=== PATIENT | male | born 1965 | race Caucasian/White ===

== ENCOUNTER 2022-12-03 11:17 | Emergency (ER) | payer BC ==
[2022-12-03 12:18] LABS: BASOPHILS ABSOLUTE AUTO 0.06 K/uL (0.00-0.10); BASOPHILS PERCENT AUTO 0.8 % (0.1-1.3); EOSINOPHILS ABSOLUTE AUTO 0.29 K/uL (0.00-0.40); EOSINOPHILS PERCENT AUTO 3.8 % (0.0-5.4); HEMATOCRIT 43.6 % (38.4-49.7); HEMOGLOBIN 14.8 g/dL (12.9-16.9); IMMATURE GRAN PERCENT AUTO 0.3 % (0.0-0.7); LYMPHOCYTES ABSOLUTE AUTO 2.54 K/uL (0.8-3.3); LYMPHOCYTES PERCENT AUTO 32.9 % (11.4-47.7); MEAN CORPUSCULAR HEMOGLOBIN 29.1 pg (31.6-35.5); MEAN CORPUSCULAR HGB CONC 33.9 g/dL (31.6-35.5); MEAN CORPUSCULAR VOLUME 85.8 fL (81.4-99.0); MONOCYTES ABSOLUTE AUTO 0.61 K/uL (0.20-0.90); MONOCYTES PERCENT AUTO 7.9 % (3.3-12.6); NEUTROPHILS ABSOLUTE AUTO 4.21 K/uL (1.0-7.6); NEUTROPHILS PERCENT AUTO 54.3 % (40.0-78.1); PLATELET COUNT,PLT 233 K/uL (130-375); RED BLOOD CELL COUNT 5.08 M/uL (4.14-5.76); WHITE BLOOD CELL COUNT,WBC 7.7 K/uL (3.2-11.0)
[2022-12-03 12:21] LABS: IMMATURE GRAN ABSOLUTE AUTO 0.02 K/uL (0.00-0.23)
[2022-12-03 12:34] LABS: ANION GAP 10.6 mmol/L (5.0-14.0); CALCIUM 8.6 mg/dL (8.5-10.1); CREATININE 0.9 mg/dL (0.8-1.3); EST CRCL DRUG DOSING (CG) 88.38 mL/min; POTASSIUM,K 4.2 mmol/L (3.6-5.2)
== END 2022-12-03 13:27 | disposition home or self-care (01) ==
LOC: JP.ED 11:17
DX: K04.7 Periapical abscess without sinus (principal); E78.00 Pure hypercholesterolemia, unspecified; Z79.899 Other long term (current) drug therapy; Z79.82 Long term (current) use of aspirin; Z87.891 Personal history of nicotine dependence
CPT/HCPCS: 36415; 80048; 83605; 85025; 99283